=== PATIENT | male | born 1990 | race Caucasian/White ===

== ENCOUNTER 2024-09-18 16:51 | Emergency (ER) | payer SELFPAY ==
[~2024-09-18] VITALS: Ht 167.6 cm; Wt 90.0 kg
[2024-09-18 16:53] VITALS: BP 129/80; PULSE 94; RESP 18; TEMP 98; O2SAT 100
== END 2024-09-18 18:46 | disposition left against medical advice (07) ==
LOC: ER 16:51
DX: F10.129 Alcohol abuse with intoxication, unspecified (principal); Y90.9 Presence of alcohol in blood, level not specified
CPT/HCPCS: 99283